=== PATIENT | male | born 1985 | race Two or more races ===

== ENCOUNTER 2016-12-15 11:15 | Emergency (ER) | payer SELFPAY ==
[2016-12-15 12:48] VITALS: BP 140/78
--- NOTE | 2016-12-21 10:37 | UC ---
Minor Trauma HPI - HPI Summary HPI Summary: Patient presents with complaints of toothache. He states that he has bad teeth and needs to have them all pulled, but he is having trouble securing a dentist with his insurance. He denies any injury, trauma, bleeding or puss. He also states he burned his right hand with hot grease while cooking. He states the burn is scabbed over and he knows he needs to clean it, but would like to have it checked out today as long as he is here. - History of Current Complaint Chief Complaint: UCDentalProblem Stated Complaint: BURN Time Seen by Provider: 12/15/16 12:53 Hx Obtained From: Patient Onset/Duration: Gradual Onset, Lasting Days Onset Of Pain: Immediate Severity Initially: Moderate Severity Currently: Moderate Pain Intensity: 6 Pain Scale Used: 0-10 Numeric Mechanism Of Injury: Other - grease burn Aggravating Factor(s): Movement, Other: - cold or hot food/dental pain - Allergies/Home Medications Allergies/Adverse Reactions: Allergies Allergy/AdvReac Type Severity Reaction Status Date / Time Bee Stings Allergy Intermediate Unknown Uncoded 12/15/16 12:21 Reaction Details PMH/Surg Hx/FS Hx/Imm Hx Previously Healthy: Yes - Surgical History Surgical History: None - Family History Known Family History: Positive: None, Other - emphysema, degenerative spine disease Negative: Cardiac Disease, Hypertension, Diabetes - Social History Occupation: Employed Full-time Lives: Alone Alcohol Use: Occasionally Substance Use Type: None, Marijuana Smoking Status (MU): Heavy Every Day Tobacco Smoker Type: Cigarettes Amount Used/How Often: 1 ppd Have You Smoked in the Last Year: Yes Household Exposure Type: Cigarettes Review of Systems Constitutional: Fatigue Skin: Other - healing 2ond degree burn of right hand. ENT: Dental Pain Cardiovascular: Negative Genitourinary: Negative All Other Systems Reviewed And Are Negative: Yes Physical Exam Triage Information Reviewed: Yes Appearance: Well-Appearing Vital Signs: Initial Vital Signs Temp 98 F 12/15/16 12:22 Pulse 98 12/15/16 12:22 Resp 20 12/15/16 12:22 Pulse Ox 100 12/15/16 12:22 Vital Signs Reviewed: Yes Eye Exam: Normal ENT Exam: Normal ENT: Positive: Other: - dental pain, right upper molar area. Dental: Positive: Abscess @ Respiratory Exam: Normal Abdominal Exam: Normal Skin: Positive: Other - healing second degree burn of right hand dorsum at index finger over the MC joint space. Minor Trauma Course/Dx - Course Course Of Treatment: Patient presents with healing second degree burn, no sx/sx of infection. recommend apply bacitracin tid until healed. He also has dental anscess was as given ABX, and referred to dentist. - Differential Dx/Diagnosis Differential Diagnosis/HQI/PQRI: Other - dental anscess second degree burn Provider Diagnoses: dental abscess. second degree burn Discharge - Discharge Plan Condition: Stable Disposition: HOME Prescriptions: Ibuprofen TAB* [Motrin TAB* 600 MG] 600 mg PO Q6H PRN #30 tab PRN Reason: toothache Penicillin VK TAB* [Penicillin VK 250 mg Tab*] 500 mg PO QID #40 tab Patient Education Materials: Dental Abscess (ED), Toothache (ED) Referrals: No Primary Care Phys,NOPCP [Primary Care Provider] -
== END 2016-12-15 13:23 | disposition home or self-care (01) ==
LOC: UCEAST 11:15
DX: K04.7 Periapical abscess without sinus (principal); T23.261A Burn of second degree of back of right hand, initial encounter; X12.XXXA Contact with other hot fluids, initial encounter; Y93.G3 Activity, cooking and baking; Y92.9 Unspecified place or not applicable; Z91.030 Bee allergy status; F17.210 Nicotine dependence, cigarettes, uncomplicated
CPT/HCPCS: 99212; G0463

== ENCOUNTER 2018-11-03 09:49 | Emergency (ER) | payer SELFPAY ==
[2018-11-03 10:01] VITALS: BP 149/80
--- NOTE | 2018-11-03 10:15 | UC ---
Back Pain HPI - HPI Summary HPI Summary: Patient is a 33-year-old male here with lower back pain. Patient was diagnosed with a herniated disc one year ago by MRI in [place]. Patient woke up this morning with worsening of his back pain. Patient has lower back pain that radiates into his right leg. Patient has no numbness, tingling, weakness, fever , chills, history of diabetes, history of IV drug use, bowel/bladder dysfunction , saddle anesthesia. In addition, patient's had pain in his right lower teeth for the past 4 days. Patient has no swelling or history of infection missed teeth. Patient does not have a dentist. Medications reviewed - History of Current Complaint Chief Complaint: UCBackPain Stated Complaint: LOWER BACK PAIN Time Seen by Provider: 11/03/18 10:02 Hx Obtained From: Patient Onset/Duration: Gradual Onset Timing: Constant Severity Initially: Moderate Severity Currently: Moderate Pain Intensity: 8 - Allergies/Home Medications Allergies/Adverse Reactions: Allergies Allergy/AdvReac Type Severity Reaction Status Date / Time Bee Stings Allergy Intermediate Unknown Uncoded 11/03/18 10:01 Reaction Details PMH/Surg Hx/FS Hx/Imm Hx Previously Healthy: Yes - Surgical History Surgical History: None - Family History Known Family History: Positive: None, Other - emphysema, degenerative spine disease, Non-Contributory Negative: Cardiac Disease, Hypertension, Diabetes - Social History Alcohol Use: Occasionally Substance Use Type: None Smoking Status (MU): Heavy Every Day Tobacco Smoker Type: Cigarettes Amount Used/How Often: 1 ppd Have You Smoked in the Last Year: Yes Household Exposure Type: Cigarettes Review of Systems All Other Systems Reviewed And Are Negative: Yes Constitutional: Negative: Fever, Chills Skin: Negative: Rash ENT: Negative: Sore Throat, Ear Ache, Nasal Discharge Cardiovascular: Negative: Chest Pain Gastrointestinal: Negative: Vomiting, Diarrhea Genitourinary: Negative: Dysuria, Hematuria, Frequency, Urgency Motor: Negative: Decreased ROM, Weakness Physical Exam - Summary Physical Exam Summary: A+Ox3, no distress Eyes: Conjunctiva Clear, PERRL. EOM intact and full ENT: Hearing grossly normal TM x 2 clear, moist, uvula midline, no exudate, no erythema. Tenderness with percussion on the right lower teeth. Neck: Positive: Supple Respiratory: Positive: No respiratory distress, No accessory muscle use + CTA throughout no w/r Cardiovascular: RRR nl s1, s2 no m/r CBT <2 sec abd soft + BS nt/nd no guarding, no distension Musculoskeletal Exam: Midline lower back tenderness. Patient able to ambulate with a normal gait. Patient able stand on both his heels and his toes. Negative straight leg raise bilaterally Neurological: Positive: Alert, + sensation throughout Psychological: Positive: Normal Response To Family Skin: no rash, no ecchymosis Triage Information Reviewed: Yes Vital Signs: Initial Vital Signs Temp 98.9 F 11/03/18 09:57 Pulse 87 11/03/18 09:57 Resp 18 11/03/18 09:57 BP 149/80 11/03/18 09:57 Pulse Ox 100 11/03/18 09:57 Back Pain Course/Dx - Course Course Of Treatment: A she is here with lower back pain. Patient has a known herniated disc seen on MRI one year ago. Patient has no red flag symptoms of back pain and does not need a repeat MRI today. Patient will be treated with Flexeril, Medrol Dosepak , ibuprofen. In addition, patient has a toothache for the past 4 days. Patient has no drainable dental abscess. Patient will be treated with antibiotics for that. - Differential Dx/Diagnosis Differential Diagnosis/HQI/PQRI: Cauda Equina Syndrome, Compressive Cord Syndrome, Epidural Abscess, Herniated Disc, Strain, Sprain, Other - dental infection Provider Diagnosis: Lower back pain, Dental infection, Herniated disc Discharge - Sign-Out/Discharge Documenting (check all that apply): Patient Departure All imaging exams completed and their final reports reviewed: No Studies - Discharge Plan Condition: Stable Disposition: HOME Prescriptions: Clindamycin Cap(NF) [Clindamycin Cap 300 mg Cap(NF)] 300 mg PO TID 7 Days #21 cap Cyclobenzaprine TAB* [Flexeril 10 MG TAB*] 10 mg PO TID PRN #10 tab PRN Reason: Pain - Moderate methylPREDNISolone [Medrol Dosepak 4 MG*] 0 mg PO .SEE GENE INSTRUCTION #1 gene Patient Education Materials: Low Back Strain (ED), Toothache (ED), Core Strengthening Exercises (ED) Referrals: No Primary Care Phys,NOPCP [Primary Care Provider] - Additional Instructions: Please take Motrin and Tylenol for pain Please take your steroid pack as prescribed Please take your muscle relaxant before bed Restage her antibiotic as prescribed Please go to the grocery store and buy the products he talked about in the back pain Please return if you have weakness in her leg, difficulty using the bathroom, fever - Billing Disposition and Condition Condition: STABLE Disposition: Home
== END 2018-11-03 10:22 | disposition home or self-care (01) ==
LOC: UCEAST 09:49
DX: M51.26 Other intervertebral disc displacement, lumbar region (principal); K04.7 Periapical abscess without sinus; F17.210 Nicotine dependence, cigarettes, uncomplicated
CPT/HCPCS: 99212; G0463

== ENCOUNTER 2018-12-15 14:40 | Emergency (ER) | payer SELFPAY ==
[2018-12-15] MEDS ORDERED: Lidocaine 1% MPF ** 5 ML VIAL INJ ONE (16:45)
[2018-12-15] MEDS ORDERED: Tetan/Diph/Pertus SYR(Tdap)* 0.5 ML SYR(BOOSTRIX) use SYR IM ONE (16:45)
[2018-12-15 17:31] VITALS: BP 112/64
--- NOTE | 2018-12-15 17:40 | ED ---
Laceration/Wound HPI - HPI Summary HPI Summary: Patient is a 33-year-old male who presents emergency department for laceration to third digit of right hand that occurred just prior to arrival. Patient states he was washing dishes when a dish broke and lacerated digit. Unaware of his last tetanus immunization. Symptoms are mild in severity. Touching her makes symptoms worse. Rest makes symptoms better. - History of Current Complaint Stated Complaint: FINGER LAC ON RT HAND PER PT Time Seen by Provider: 12/15/18 16:33 Hx Obtained From: Patient Pain Intensity: 0 Pain Scale Used: 0-10 Numeric - Allergy/Home Medications Allergies/Adverse Reactions: Allergies Allergy/AdvReac Type Severity Reaction Status Date / Time Bee Stings Allergy Intermediate Unknown Uncoded 12/15/18 14:43 Reaction Details PMH/Surg Hx/FS Hx/Imm Hx Previously Healthy: Yes Endocrine/Hematology History: Denies: Hx Diabetes, Hx Thyroid Disease Cardiovascular History: Denies: Hx Hypertension Respiratory History: Denies: Hx Asthma, Hx Chronic Obstructive Pulmonary Disease (COPD) GI History: Denies: Hx Ulcer Infectious Disease History: No Infectious Disease History: Denies: Hx Clostridium Difficile, Hx Hepatitis, Hx Human Immunodeficiency Virus (HIV), Hx of Known/Suspected MRSA, Hx Shingles, Hx Tuberculosis, Hx Known/ Suspected VRE, Hx Known/Suspected VRSA, History Other Infectious Disease, Traveled Outside the [place] in Last 30 Days - Family History Known Family History: Positive: None, Other - emphysema, degenerative spine disease, Non-Contributory Negative: Cardiac Disease, Hypertension, Diabetes - Social History Occupation: Employed Full-time Lives: With Family Alcohol Use: Occasionally Hx Substance Use: Yes - heroine, 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 Substance Use Type: Reports: Marijuana Hx Tobacco Use: Yes Smoking Status (MU): Heavy Every Day Tobacco Smoker Type: Cigarettes Amount Used/How Often: 1 ppd Have You Smoked in the Last Year: Yes Review of Systems Positive: Other Neurological: Negative Negative: Weakness, Paresthesia, Numbness All Other Systems Reviewed And Are Negative: Yes Physical Exam Triage Information Reviewed: Yes Vital Signs On Initial Exam: Initial Vitals Temp Pulse Resp BP Pulse Ox 98.4 F 97 16 127/80 100 12/15/18 14:42 12/15/18 14:42 12/15/18 14:42 12/15/18 14:42 12/15/18 14:42 Vital Signs Reviewed: Yes Appearance: Positive: Well-Appearing - Patient sitting on bed in no acute distress. Skin: Positive: Warm, Dry Head/Face: Positive: Normal Head/Face Inspection Eyes: Positive: Normal, EOMI Neck: Positive: Supple Musculoskeletal: Positive: Other - 1.5 cm triangular deep flap laceration noted to the dorsal aspect of the distal third digit of the right hand sleep. Full range of motion of the digit. Mild body tenderness. Neurological: Positive: Normal, CN Intact II-III Procedures - Laceration/Wound Repair 1 Location: upper extremity Description: Irregular Anesthesia: Local, 1.0% Length, Depth and Shape: 1.5cm Betadine Prep?: No - hibiclens Laceration/Wound Explored: clean Closure: Single Layer Suture Type: Nylon Layer Closure?: No Sterile Dressing Applied?: Yes Diagnostics - Vital Signs Vital Signs Temp Pulse Resp BP Pulse Ox 12/15/18 17:31 97.8 F 74 16 112/64 97 12/15/18 14:42 98.4 F 97 16 127/80 100 - Laboratory Lab Statement: Any lab studies that have been ordered have been reviewed, and results considered in the medical decision making process. Laceration Repair Course/Dx - Course Course Of Treatment: Patient was simple finger laceration. He does have bony tenderness, patient refused x-ray. Laceration was repaired as noted above. Tetanus updated. Suture removal in 7-10 days. Keep the wound clean and dry. To return to the ER for redness, swelling or drainage from wound. Patient understands and agrees with plan. - Differential Dx Differental Diagnoses: Laceration, Puncture Wound - Clinical Impression Provider Diagnoses: Finger laceration Discharge ED - Sign-Out/Discharge Documenting (check all that apply): Patient Departure Patient Received Moderate/Deep Sedation with Procedure: No - Discharge Plan Condition: Improved Disposition: HOME Patient Education Materials: Finger Laceration (ED) Referrals: [facility] [Outside] Additional Instructions: Suture removal in 10 days Keep wound clean and dry Tylenol or Motrin for pain as directed Return to ER if symptoms change or worsen - Billing Disposition and Condition Condition: IMPROVED Disposition: Home
== END 2018-12-15 17:10 | disposition home or self-care (01) ==
LOC: ED 14:40
DX: S61.212A Laceration without foreign body of right middle finger without damage to nail, initial encounter (principal); Z23 Encounter for immunization; W25.XXXA Contact with sharp glass, initial encounter; Y93.G1 Activity, food preparation and clean up; Y92.9 Unspecified place or not applicable; F17.210 Nicotine dependence, cigarettes, uncomplicated
CPT/HCPCS: 12001; 90471; 90715; 99282

== ENCOUNTER 2019-06-11 10:28 | Emergency (ER) | payer SELFPAY ==
[2019-06-11 10:42] VITALS: BP 143/82
--- NOTE | 2019-06-11 11:41 | UC ---
Throat Pain/Nasal [place] HPI - HPI Summary HPI Summary: patient has mild sore throat today, no cough, no fever, no body aches has taken no meds - History of Current Complaint Chief Complaint: UCGeneralIllness Stated Complaint: SORE THROAT Time Seen by Provider: 06/11/19 11:13 Hx Obtained From: Patient Onset/Duration: Sudden Onset Severity: Mild Pain Intensity: 1 Cough: None Associated Signs & Symptoms: Negative: Sinus Discomfort, Fever - Allergies/Home Medications Allergies/Adverse Reactions: Allergies Allergy/AdvReac Type Severity Reaction Status Date / Time Bee Stings Allergy Intermediate Unknown Uncoded 06/11/19 10:43 Reaction Details Home Medications: Home Medications NK [No Home Medications Reported] 06/11/19 [History Confirmed 06/11/19] PMH/Surg Hx/FS Hx/Imm Hx Previously Healthy: Yes - Surgical History Surgical History: None - Family History Known Family History: Positive: None, Other - emphysema, degenerative spine disease, Non-Contributory Negative: Cardiac Disease, Hypertension, Diabetes - Social History Occupation: Employed Full-time Lives: Alone Alcohol Use: Occasionally Substance Use Type: Marijuana Smoking Status (MU): Heavy Every Day Tobacco Smoker Type: Cigarettes Amount Used/How Often: 1 ppd Have You Smoked in the Last Year: Yes Household Exposure Type: Cigarettes Cessation Counseling: Patient Advised to Stop Review of Systems All Other Systems Reviewed And Are Negative: Yes Constitutional: Positive: Negative. Negative: Fever, Chills Skin: Positive: Negative. Negative: Rash ENT: Positive: Sore Throat. Negative: Ear Ache, Sinus Congestion, Sinus Pain/ Tenderness Respiratory: Positive: Negative. Negative: Cough - except normal "smoker's cough" Cardiovascular: Positive: Negative Gastrointestinal: Positive: Negative. Negative: Abdominal Pain, Vomiting, Diarrhea Musculoskeletal: Positive: Negative Psychological: Positive: Negative Is Patient Immunocompromised?: No Physical Exam Triage Information Reviewed: Yes Appearance: Well-Appearing, No Pain Distress, Well-Nourished Vital Signs: Initial Vital Signs Temp 98 F 06/11/19 10:40 Pulse 89 06/11/19 10:40 Resp 17 06/11/19 10:40 BP 143/82 06/11/19 10:40 Pulse Ox 98 06/11/19 10:40 Vital Signs Reviewed: Yes Eye Exam: Normal Eyes: Positive: Conjunctiva Clear ENT: Positive: Pharynx normal. Negative: Nasal congestion Respiratory Exam: Normal Respiratory: Positive: Lungs clear Cardiovascular Exam: Normal Cardiovascular: Positive: RRR Neurological Exam: Normal Psychological Exam: Normal Skin Exam: Normal Throat Pain/Nasal Course/Dx - Differential Dx/Diagnosis Differential Diagnosis/HQI/PQRI: Influenza, Sinusitis, Tonsillitis, URI Provider Diagnosis: Sore throat Discharge ED - Sign-Out/Discharge Documenting (check all that apply): Patient Departure All imaging exams completed and their final reports reviewed: No Studies - Discharge Plan Condition: Good Disposition: HOME Patient Education Materials: Pharyngitis (ED) Forms: *Work Release Referrals: No Primary Care Phys,NOPCP [Primary Care Provider] - [facility] [Outside] Additional Instructions: drink plenty of fluids and rest use ibuprofen as directed for pain return if symptoms worsen - Billing Disposition and Condition Condition: GOOD Disposition: Home
== END 2019-06-11 11:55 | disposition home or self-care (01) ==
LOC: UCEAST 10:28
DX: J02.9 Acute pharyngitis, unspecified (principal); F17.210 Nicotine dependence, cigarettes, uncomplicated; Z91.030 Bee allergy status
CPT/HCPCS: 87651; 99211; G0463